=== PATIENT | female | born 1950 | race Caucasian/White ===

== ENCOUNTER → 2016-06-16 | Outpatient (CLI) | payer BC ==
[~2016-06-16] MED LIST: ACET-2422 PO; ACET325T49 PO; AMLO10TA2 PO; CIPR500T4 PO; DULO60CA58 PO; LISI40TA PO; LOSA25TA21 PO; MELO7.5T46 PO; METO100T6 PO; MULT1TAB69 PO; OMEG-160 PO; OXYC-197 PO; OXYC-471 PO; SIMV20TA3 PO; TRAM50TA2 PO
--- NOTE | 2016-06-19 20:01 | Diagnostic Imaging Report ---
Bilateral screening mammogram. The current study was also evaluated with a Computer Aided Detection (CAD) system. INDICATION: Screening. No current complaints stated on the questionnaire. COMPARISON: 05/01/13. FINDINGS: The breasts are composed of scattered fibroglandular densities. There are occasional benign-appearing calcifications. Allowing for technique and positional differences, no suspicious change is seen. IMPRESSION: No significant change. ACR BI-RADS Category 2: Benign findings. Result letter will be mailed to the patient. Note: At least 10% of breast cancer is not imaged by mammography. Dictated by: Dictated on workstation # [id number]
== END ==
LOC: RAD 11:50
PROVIDERS: ATTEND Nurse Practitioner Family
DX: Z12.31 Encounter for screening mammogram for malignant neoplasm of breast (principal)
CPT/HCPCS: 77067